=== PATIENT | male | born 2000 | race Two or more races ===

== ENCOUNTER 2022-08-22 01:15 | Emergency (ER) | payer BC, OTHER ==
[~2022-08-22] VITALS: Ht 182.9 cm; Wt 71.7 kg
[2022-08-22 01:34] VITALS: BP 107/58
== END 2022-08-22 04:00 | disposition home or self-care (01) ==
LOC: ER 01:21
DX: M79.641 Pain in right hand (principal); R22.31 Localized swelling, mass and lump, right upper limb; F17.210 Nicotine dependence, cigarettes, uncomplicated; F12.10 Cannabis abuse, uncomplicated; F90.9 Attention-deficit hyperactivity disorder, unspecified type
CPT/HCPCS: 73130